=== PATIENT | female | born 1955 | race Hispanic/Latino ===

== ENCOUNTER 2016-12-19 11:29 | Day surgery (SDC) | payer MEDICARE ==
[2016-12-15 13:15] VITALS: BMI 24.7
[2016-12-19] MEDS ORDERED: Propofol 10 mg/ml Inj (20 ML) ONE (12:39)
[2016-12-19] MEDS ORDERED: ePHEDrine 50 mg/ml Inj ONE (12:50)
[2016-12-19] MEDS ORDERED: HYDROmorphone 0.5 mg/0.5 ml ISec IVP PRN (13:08)
--- NOTE | 2016-12-19 13:47 | PCM.SURG1 ---
Surgeon's Initial Post Op Note - Surgeon's Notes Surgeon: Dayanara Cox MD Veterinary Surgeon: none Type of Anesthesia: General LMA Pre-Operative Diagnosis: Post coital bleeding, post menopausal bleeding Operative Findings: Small anteverted uterus, sounded to 5cm, no adnexal masses, , cervical stenosis with polypoid tissue, bilateral ostia visualized. Post-Operative Diagnosis: same as above Operation Performed: Operative hysteroscopy, Fractional dilation and currettage Specimen/Specimens Removed: endocervical currettings, endometrial curretting, endocervical polypoid tissue Estimated Blood Loss: EBL {In ML}: 10 Blood Products Given: N/A Drains Used: No Drains Post-Op Condition: Good Date of Surgery/Procedure: 12/19/16 Time of Surgery/Procedure: 12:30
[2016-12-19 14:35] VITALS: RESP 10; TEMP 97.7
--- NOTE | 2016-12-19 14:54 | OP ---
PROCEDURE DATE: 12/19/2016 SURGEON: Dr. Dayanara Cox. THERMOMETER MAKER: None. TYPE OF ANESTHESIA: General LMA. PREOPERATIVE DIAGNOSIS: Postcoital bleeding, postmenopausal bleeding. OPERATIVE FINDINGS: Small anteverted uterus sounded to 5 cm. No adnexal masses. Cervical stenosis with polypoid tissue noted at the cervical os. Bilateral ostia visualized. POSTOPERATIVE DIAGNOSIS: Postcoital bleeding, postmenopausal bleeding. OPERATION PERFORMED: Operative hysteroscopy, fractional dilation and curettage. SPECIMEN REMOVED: Endocervical curettings, endometrial curettings, endocervical polypoid tissue. ESTIMATED BLOOD LOSS: 10 mL. BLOOD PRODUCTS: None. COMPLICATIONS: None. URINE OUTPUT: 20 mL of clear yellow urine. DESCRIPTION OF PROCEDURE: The patient was taken to the operating where she was given general anesthe tamara. Once found to be adequate, she was positioned on the operating table in dorsal supine position with legs supported using stirrups. The patient was then prepped and draped in the usual normal ster ile fashion. Timeout was performed, correct patient, correct procedure. Bimanual exam with above-me ntioned findings. Red rubber catheter into the urethra to drain bladder. Approximately 10 mL of rohini ar yellow urine was obtained. Following this, a Higuera retractor was placed in the anterior, posterior fornix of vagina and cervix ____ visualized with polypoid tissue noted within the cervical os. The polypoid tissue was removed and sent to pathology on [facility]. Single tooth tenaculum was placed in the anterior lip of the cervix and the uterus was attempted to be sounded, but due to cervical stenosis, was sequentially dilated with Joshua dilator and then the uterus was then sounded. Endocervical curet tings were obtained with a Tavares curet and sent to pathology on [facility]. Following this, the cervi x was sequentially dilated with Joshua dilators to allow for introduction of the hysteroscopic device u nder direct visualization using normal saline as the distending media. There was some polypoid tissu e noted close to the internal cervical os. Bilateral ostia were visualized. There was an atrophic e ndometrium noted throughout. No gross masses noted within the cavity. Following this, the hysterosc ope was removed and a gentle curettage of 360 degrees until a gritty texture was noted and then was r emoved with the polypoid tissue. The hysteroscope was then reinserted and there was good removal of that polypoid tissue at the cervical os. All instruments were removed. The single tooth tenaculum w as removed. There was good hemostasis noted at the tenaculum puncture site. All instruments were re moved. At the end of the procedure, all needle, sponge and instrument counts were noted to be correc t x 2. The patient tolerated the procedure well and was transferred to recovery in stable condition. Dayanara Cox MD cc: [id number] TT: 12/19/2016 14:53:28 tn
[2016-12-19 16:21] VITALS: BP 129/63; PULSE 73; O2SAT 99
== END 2016-12-19 15:55 | disposition home or self-care (01) ==
LOC: C.SDS 11:29
PROVIDERS: ATTEND Obstetrics & Gynecology
DX: N84.1 Polyp of cervix uteri (principal); N93.0 Postcoital and contact bleeding; N95.0 Postmenopausal bleeding
CPT/HCPCS: 58558; 88305; J1100; J1885; J2405; J2704; J3010